=== PATIENT | male | born 1945 | race Caucasian/White ===

== ENCOUNTER → 2019-04-30 | Outpatient (CLI) | payer SELFPAY ==
--- NOTE | 2019-04-30 16:49 | PCVCIMAG ---
APPROVED REPORT Study performed: 04/30/2019 15:49:36 Exam: Stress Echocardiogram Indication: Chest pain with exertion Patient Location: Echo lab Stress Nurse: Jeni Nieto RN Room #: 2 Status: routine Ht: 6 ft 0 in HR: 90 bpm BP: 150/86 mmHg Rhythm: First degree AV Block Medical History Medical History: CAD non obstructive-elevated coronary calcium score Previous Cardiac Procedures: none Pretest Chest Pain Characteristics: No chest pain Exercise History: Physically active Procedure The patient underwent an Exercise Stress Test using the Carson Protocol. Blood pressure, heart rate, and EKG were monitored. An Echocardiogram was performed by battery technician in four stages in quad fashion. At peak stress, four selected images were obtained and placed side by side with resting images for comparison. Stress Test Details Stress Test: Exercise stress testing was performed using a Carson protocol. HR Resting HR: 90 bpmMax Heart Rate (APMHR): 148 bpm Max HR Achieved: 155 bpmTarget HR (85% APMHR): 125 bpm % of APMHR: 104 Recovery HR: 101 bpm HR response to stress: Normal HR response to stress BP Resting BP: 150/86 mmHg Max BP: 176/80 mmHg Recovery BP: 142/76 mmHg BP response to stress: Normal blood pressure response to stress. ECG Resting ECG: Sinus Rhythm, NSSTT changes Stress ECG: Sinus Rhythm, NSSTT changes ST Change: Non-ischemic Maximum ST Deviation: -0.30 mm Arrhythmia: PACs, occ PVCs Recovery ECG: Sinus Rhythm Recovery ST Change: Non-ischemic Recovery ST Deviation: -0.15 mm Recovery Arrhythmia: PACs Clinical Reason for Termination: Maximal effort, chest pain Stress Symptoms: Chest pain Exercise duration: 12 min 00 sec Highest Stage Achieved: Stage 4: 4.2 mph at 16% grade. Exercise capacity: 13.4 METs Overall Exercise Capacity for Age: Excellent Scale: Active Symptoms resolved during recovery. Pre-Stress Echo The resting Echocardiogram showed normal left ventricular contractility with an estimated Ejection Fraction of about 55-60%. Normal wall motion in all segments on baseline images. Post-Stress Echo The stress Echocardiogram showed normal left ventricular contractility with an estimated Ejection Fraction of about 65-70%. Normal augmentation of wall motion in all segments on post stress images. Clinical No clinical or ECG evidence for ischemia. Conclusion Clinical Response: Equivocal Exercise Capacity: Superior Stress ECG Response: Non-ischemic Stress Echo Images: Non-ischemic Patient had chest pain during exercise which resolved at rest. No EKG or echocardiographic evidence for ischemia. Normal stress echocardiogram with maximal exercise stress. Normal color doppler. No regurgitation or stenosis present on pulmonic, mitral, tricuspid and aortic valves. <Conclusion> Patient had chest pain during exercise which resolved at rest. No EKG or echocardiographic evidence for ischemia. Normal stress echocardiogram with maximal exercise stress. Normal color doppler. No regurgitation or stenosis present on pulmonic, mitral, tricuspid and aortic valves.
== END | disposition home or self-care (01) ==
LOC: PCVCIMAG 16:02
PROVIDERS: ATTEND Internal Medicine Cardiovascular Disease
DX: R93.1 Abnormal findings on diagnostic imaging of heart and coronary circulation (principal); R07.9 Chest pain, unspecified; E78.00 Pure hypercholesterolemia, unspecified
CPT/HCPCS: 93325; 93351

== ENCOUNTER → 2019-05-12 | Outpatient (CLI) | payer OTHER ==
--- NOTE | 2019-05-13 12:43 | PCVCIMAG ---
APPROVED REPORT Imaging Protocol: Rest Tc-99m/Stress Tc-99m 1 day Study performed: 05/12/2019 13:40:25 Indication: Chest Pain on exertion Patient Location: Out-Patient Stress Nurse: Jeni Nieto RN, Maegan Taylor RN [place] Tech:Jazmin Melgozarichie [facility] Ht: 6 ft 0 in Wt: 180 lbs BSA: 2.04 m2 HR: 67 bpm BP: 122/78 mmHg BMI: 24.4 Rhythm: Sinus Rhythm, LAFB Medical History Medical History: Hyperlipidemia Medications: Aspirin, Statin Allergies: No known drug allergies Cardiac Risk Factors: Age Pretest Chest Pain Characteristics: No chest pain Exercise History: Physically active Resting Data Rest SPECT myocardial perfusion imaging was performed in supine position 45 minutes following the intravenous injection of 11 mCi of Tc-99m Sestamibi. Time of rest injection: 1300 Administration Route: IV Administration Site: Right AC Exercise Stress At peak stress, the patient was injected intravenously with 35.4mCi of Tc-99m Sestamibi. Time of stress injection: 1420 Administration Route: IV Administration Site: Right AC Patient continued to exercise for 1 minute(s). Gated Stress SPECT was performed 45 minutes after stress injection. The images were gated to evaluate regional wall motion and calculate left ventricular ejection fraction. Stress Test Details Stress Test: Exercise stress testing was performed using a Carson protocol. HRMax Heart Rate (APMHR): 148 bpm Resting HR: 67 bpmTarget HR (85% APMHR): 125 bpm Max HR Achieved: 133 bpm % of APMHR: 89 Recovery HR: 78 bpm BP Resting BP: 122/78 mmHg Max BP: 179/79 mmHg Recovery BP: 157/77 mmHg ECG Resting ECG: Sinus Rhythm, LAFB Stress ECG: Sinus Tachycardia, LAFB Arrhythmia: PVC's Recovery ECG: Sinus Rhythm, LAFB Clinical Reason for Termination: Completed protocol Stress Symptoms: Chest pain Exercise duration: 12 min 15 sec Exercise capacity: 13.40 METs Symptoms resolved during recovery. Stress ECG Conclusion ECG: Non-ischemic Study Quality Study: Good Study Data Post stress, the left ventricular ejection was 59%.. SSS: 0 SRS: 2 SDS: 0 TID = 0.96. Perfusion Medium sized area of mild reversible ischemia involving the inferior left ventricle consistent with a right coronary artery distribution. Wall Motion Normal left ventricular size and function with no regional wall motion abnormalities. Nuclear Conclusion Medium sized area of mild reversible ischemia involving the inferior left ventricle consistent with a right coronary artery distribution. Normal left ventricular size and function with no regional wall motion abnormalities. Post stress, the left ventricular ejection was 59%. No prior study available for comparison. Interpreted by: Haris Walker MD Electronically Approved: 05/12/2019 16:04:32 <Conclusion> ECG: Non-ischemic
== END | disposition home or self-care (01) ==
LOC: PCVCIMAG 12:49
PROVIDERS: ATTEND Internal Medicine Cardiovascular Disease
DX: E78.00 Pure hypercholesterolemia, unspecified (principal); M19.90 Unspecified osteoarthritis, unspecified site
CPT/HCPCS: 78452; 93017; A9500